=== PATIENT | female | born 1995 | race Caucasian/White ===

== ENCOUNTER 2018-07-05 10:48 | Emergency (ER) | payer BC ==
[2018-07-05] MEDS: predniSONE 20 MG TAB PO (11:52)
[2018-07-05] MEDS: DIPHENHYDRAMINE 25 MG CAP PO (11:53)
== END 2018-07-05 12:33 | disposition home or self-care (01) ==
LOC: FTE 10:48
DX: R21 Rash and other nonspecific skin eruption (principal); F17.210 Nicotine dependence, cigarettes, uncomplicated
CPT/HCPCS: 99283; J7512